=== PATIENT | male | born 1990 | race Caucasian/White ===

== ENCOUNTER 2017-09-22 15:50 | Emergency (ER) | payer SELFPAY ==
[~2017-09-22] VITALS: Ht 188 cm; Wt 84.0 kg
[2017-09-22] MEDS ORDERED: KETOROLAC 15MG/ML VIAL IV ONE (16:30)
[2017-09-22] MEDS ORDERED: SODIUM CHLORIDE 0.9% 1,000 ML IV ONE (16:30)
[2017-09-22] MEDS ORDERED: DEXAMETHASONE 10 MG/ML VIAL IV ONE (16:30)
[2017-09-22 17:47] LABS: BASOPHILS % 0.1 % (0.0-2.0); HEMATOCRIT. 40.1 % (42.0-52.0); HEMOGLOBIN. 13.5 g/dL (14.0-18.0); LYMPHOCYTES % 13.7 % (20.0-50.0); MEAN CORPUSCULAR HEMOGLOBIN 32.1 pg (28.0-32.0); MEAN CORPUSCULAR VOLUME 94.9 fL (80.0-94.0); MEAN PLATELET VOLUME 8.6 fl (7.4-10.4); MONOCYTES % 7.7 % (2.0-8.0); NEUTROPHILS % 78.5 % (40.0-76.0); PLATELET 212 x1000/uL (130-400); RED BLOOD CELL COUNT 4.22 mill/uL (4.7-6.1); RED CELL DISTRIBUTION WIDTH 12.3 % (11.6-14.6)
[2017-09-22 17:59] LABS: CARBON DIOXIDE 29 mEq/L (21-32); CHLORIDE 104 mEq/L (98-107)
[2017-09-22] MEDS ORDERED: IOHEXOL-300 100 ML BOTTLE ONE (19:01)
[2017-09-22 19:30] VITALS: BP 122/77
== END 2017-09-22 21:00 | disposition home or self-care (01) ==
LOC: ER 16:51
DX: K11.5 Sialolithiasis (principal); K11.20 Sialoadenitis, unspecified; Z98.890 Other specified postprocedural states
CPT/HCPCS: 36415; 70491; 80048; 85025; 96361; 96374; 96375; 99285; J1100; J1885; Q9967; J7030